=== PATIENT | male | born 1980 | race Caucasian/White ===

== ENCOUNTER 2019-12-06 13:43 | Emergency (ER) | payer SELFPAY ==
[~2019-12-06] VITALS: Ht 170.2 cm; Wt 75.0 kg
[2019-12-06 13:45] VITALS: BP 112/65
--- NOTE | 2019-12-06 13:55 | NUR ---
PT HERE TO BE CHECKED FOR WHOOPING COUGH.
[2019-12-06] MEDS ORDERED: ACETAMINOPHEN 500 MG TABLET ONE (14:20)
--- NOTE | 2019-12-06 14:23 | NUR ---
PT MEDICATED PER ORDERS.
[2019-12-06] MEDS ORDERED: ACETAMINOPHEN 500 MG TABLET PO ONE (14:30)
[2019-12-06 14:40] LABS: RAPID INFLUENZA A Negative (Negative); RAPID INFLUENZA B Negative (Negative)
--- NOTE | 2019-12-06 14:48 | NUR ---
Patient/Caregiver given discharge instructions and they have confirmed that they understand the instructions. Patient ambulatory with steady gait.
== END 2019-12-06 14:57 | disposition home or self-care (01) ==
LOC: ED 14:10
DX: B34.9 Viral infection, unspecified (principal)
CPT/HCPCS: 71046; 87400; 99284